=== PATIENT | male | born 1975 | race Caucasian/White ===

== ENCOUNTER → 2022-12-03 14:49 | Outpatient (BNVA) | payer BC, SELFPAY | PROVIDERS: Visit Provider Internal Medicine | DX: R07.9 Chest pain, unspecified (principal) | CPT/HCPCS: 93005 ==

== ENCOUNTER 2022-12-12 13:59 | Outpatient (CLI) | payer BC, SELFPAY ==
--- NOTE | 2022-12-12 14:30 | USCV_ITS ---
Robert Melendez Age: 47 Gender: M : 1975 Exam Date: 12/12/2022 14:28 Ordering Phys: Rodriguez Greenwood M.D ([email or web address]) Technologist: NEELAM [place]am [place] [facility] [place]: cp, sob BP: 144 / 80 HR: 78 Rhythm: Sinus Technical Quality: Adequate MEASUREMENTS (Male / Female) Normal Values 2D ECHO LV Diastolic Diameter PLAX 5.0 cm 4.2 - 5.9 / 3.9 - 5.3 cm LV Systolic Diameter PLAX 2.8 cm IVS Diastolic Thickness 1.3 cm 0.6 - 1.0 / 0.6 - 0.9 cm IVS Systolic Thickness 1.4 cm LVPW Diastolic Thickness 1.1 cm 0.6 - 1.0 / 0.6 - 0.9 cm LVPW Systolic Thickness 2.1 cm LVOT Diameter 2.0 cm LV Ejection Fraction 2D Teich 74.5 % LV Ejection Fraction MOD 2C 79.2 % LV Ejection Fraction 2C AL 81.4 % LA Diameter 3.3 cm LA Width 3.1 cm LA Height 3.5 cm RA Width 3.9 cm RA Height 4.7 cm Aorta at Sinotubular Diameter 2.7 cm IVC Diameter 2.0 cm M-MODE Aortic Annulus Diameter 3.0 cm LA Ao Ratio MM 1.3 MV E Point Septal Separation 0.4 cm DOPPLER AV Peak Velocity 210.0 cm/s LVOT Peak Velocity 138.0 cm/s AV Area Cont Eq vti 2.2 cm squared AV Area Cont Eq pk 2.1 cm squared MV E' Velocity 6.0 cm/s TR Peak Velocity 103.8 cm/s TR Peak Gradient 4.3 mmHg Right Atrial Pressure 5.0 mmHg Pulmonary Artery Systolic Pressu 9.3 mmHg PV Peak Velocity 141.0 cm/s RV Acceleration Time 0.1 s RV Ejection Time 0.4 s RV AcT/ET 0.4 FINDINGS Left Ventricle Left ventricle is normal in size. LV systolic function is normal with EF of 60-65%. No regional wall motion abnormalities are seen. Right Ventricle Normal in size and function Right Atrium Normal in size Left Atrium Normal in size Mitral Valve Structurally normal mitral valve. Aortic Valve Structurally normal aortic valve. Mild aortic stenosis with mean gradient across aortic valve of 8.4 mmHg. Tricuspid Valve Mild tricuspid regurgitation. Insufficient TR jet to calculate RVSP Pulmonic Valve Not well visualized Pericardium Normal Aorta Normal in size IVC Appears to be normal CONCLUSIONS LV systolic function is normal with EF of 60 to 65%. Mild aortic stenosis Mild tricuspid regurgitation No comparison studies are available. Rodriguez Greenwood MD (Electronically Signed) Final Date: 29 December 2022 12:54 S
== END 2022-12-12 14:00 | disposition home or self-care (01) ==
PROVIDERS: Visit Provider Internal Medicine
DX: I08.2 Rheumatic disorders of both aortic and tricuspid valves (principal); R06.02 Shortness of breath; R07.9 Chest pain, unspecified
CPT/HCPCS: 93306

== ENCOUNTER 2024-09-21 08:59 | Outpatient (CLI) | payer BC, SELFPAY ==
--- NOTE | 2024-09-21 09:15 | USCV_ITS ---
Robert Melendez Age: 48 Gender: M : 1975 Exam Date: 09/21/2024 09:31 Ordering Phys: Rodriguez Greenwood M.D ([email or web address]) Technologist: [place] [facility] [place]: BP: 140 / 80 HR: 76 Rhythm: Sinus Technical Quality: Adequate MEASUREMENTS (Male / Female) Normal Values 2D ECHO LV Diastolic Diameter PLAX 4.7 cm 4.2 - 5.9 / 3.9 - 5.3 cm IVS Diastolic Thickness 1.2 cm 0.6 - 1.0 / 0.6 - 0.9 cm IVS Systolic Thickness 1.9 cm LVPW Diastolic Thickness 1.3 cm 0.6 - 1.0 / 0.6 - 0.9 cm LVPW Systolic Thickness 1.7 cm LVOT Diameter 2.2 cm LV Ejection Fraction 2D Teich 66.1 % LV Ejection Fraction MOD 4C 78.2 % LV Ejection Fraction MOD 2C 50.4 % LV Ejection Fraction 2C AL 51.8 % LA Diameter 3.5 cm RA Systolic Volume 4C AL 44.5 ml RA Systolic Volume 4C MOD 39.5 ml LA Sys Volume AL 50.8 cm cubed LA Sys Volume Index AL 20.5 cm cubed/m squared Aorta at Sinotubular Diameter 3.0 cm M-MODE LA Ao Ratio MM 1.2 AV Cusp Separation MM 2.4 cm DOPPLER AV Peak Velocity 177.0 cm/s LVOT Peak Velocity 121.0 cm/s AV Area Cont Eq vti 3.2 cm squared AV Area Cont Eq pk 2.5 cm squared MV Peak Velocity 101.0 cm/s MV Area PHT 3.1 cm squared Mitral E to A Ratio 1.0 TR Peak Velocity 152.0 cm/s TR Peak Gradient 9.2 mmHg TV Peak E Velocity 85.0 cm/s PV Peak Velocity 101.0 cm/s FINDINGS Left Ventricle Left ventricle is normal in size. LV systolic function is normal with EF of 55-60%. No regional wall motion abnormalities are seen. Right Ventricle Normal in size and function Right Atrium Normal in size Left Atrium Normal in size Mitral Valve Structurally normal mitral valve. Mild mitral regurgitation. Aortic Valve Grossly normal. No significant stenosis or regurgitation. Tricuspid Valve Insufficient TR jet to calculate RVSP Pulmonic Valve Not well visualized Pericardium Normal Aorta Normal in size IVC Not well visualized CONCLUSIONS LV systolic function is normal with EF of 55-60% Mild mitral regurgitation Rodriguez Greenwood MD (Electronically Signed) Final Date: 07 October 2024 11:09 S
== END 2024-09-21 09:00 | disposition home or self-care (01) ==
LOC: RAD 09:01
PROVIDERS: Visit Provider Internal Medicine
DX: I35.0 Nonrheumatic aortic (valve) stenosis (principal); I34.0 Nonrheumatic mitral (valve) insufficiency
CPT/HCPCS: 93306